=== PATIENT | female | born 2000 | race Two or more races ===

== ENCOUNTER 2023-10-13 15:47 | Outpatient (CLI) | payer OTHER | END 2023-10-13 15:49 | disposition home or self-care (01) | LOC: PRENATAL 15:47 | PROVIDERS: ATTEND Obstetrics & Gynecology Maternal & Fetal Medicine | DX: O36.80X0 Pregnancy with inconclusive fetal viability, not applicable or unspecified (principal); Z36.82 Encounter for antenatal screening for nuchal translucency; Z36.9 Encounter for antenatal screening, unspecified; Z3A.13 13 weeks gestation of pregnancy ==

== ENCOUNTER 2023-11-23 10:10 | Outpatient (CLI) | payer OTHER | END 2023-11-23 10:13 | disposition home or self-care (01) | LOC: PRENATAL 10:10 | PROVIDERS: ATTEND Obstetrics & Gynecology Maternal & Fetal Medicine | DX: O35.3XX0 Maternal care for (suspected) damage to fetus from viral disease in mother, not applicable or unspecified (principal); O44.00 Complete placenta previa NOS or without hemorrhage, unspecified trimester; Z3A.19 19 weeks gestation of pregnancy ==

== ENCOUNTER 2024-03-01 00:34 | Inpatient (IN) | payer OTHER ==
[~2024-03-01] VITALS: Ht 157.5 cm; Wt 1.8 kg
[2024-03-01] MEDS ORDERED: RINGERS SOLUTION,LACTATED 500 ML IV SCH (00:45)
[2024-03-01] MEDS ORDERED: PRENATAL TABLE1 EAC1 PO (00:53)
[2024-03-01] MEDS ORDERED: IRON325 MG PO (00:53)
[2024-03-01] MEDS ORDERED: NIFEDIPINE 30 MG TAB.SA.OSM PO ONE (01:30)
[2024-03-01] MEDS ORDERED: BETAMETHASONE ACETATE,SOD PHOS 30 MG/5 ML ML ONE (01:53)
[2024-03-01 01:56] LABS: URINE APPEARANCE Cloudy; URINE BILIRRUBIN Negative (NEGATIVE); URINE BLOOD Large; URINE COLOR Yellow; URINE GLUCOSE Negative (NEGATIVE); URINE LEUKOCYTE Negative; URINE NITRATE Negative; URINE UROBILINOGEN 0.2 E.U./dl
[2024-03-01 01:57] LABS: HEMATOCRIT 27.2 % (36.0-45.00); HEMOGLOBIN 9.3 g/dL (12.0-15.00); MEAN CELL VOLUME 95.7 fL (80.00-100.00); MEAN CORPUSCULAR HEMOGLOBIN 32.6 pg (27.00-32.0); MEAN CORPUSCULAR HGB CONC 34.1 g/dl (32.0-36.0); PLATELET COUNT 215 K/uL (150-450); RED BLOOD COUNT 2.85 M/uL (4.00-6.00); RED CELL DISTRIBUTION WIDTH 13.4 % (11.5-14.5)
[2024-03-01 01:59] LABS: URINE EPITHELIAL CELLS 29.8 uL (0.0-38.8); URINE RBC 1631.8 uL (0.0-20.8); URINE WBC 32.2 uL (0.0-23.2)
[2024-03-01] MEDS ORDERED: BETAMETHASONE ACETATE,SOD PHOS 30 MG/5 ML ML IM ONE ×2 (02:00→14:30)
[2024-03-01 02:04] LABS: URINE PROTEIN 300 (NEGATIVE)
[2024-03-01] MEDS ORDERED: NIFEDIPINE 10 MG CAPSULE PO ONE ×2 (08:27→20:36)
[2024-03-01] MEDS ORDERED: NIFEDIPINE 10 MG CAPSULE PO SCH (09:00)
[2024-03-01] MEDS ORDERED: AMPICILLIN SODIUM 2,000 MG VIAL IV ONE (09:00)
[2024-03-01] MEDS ORDERED: IRON/V.C/V.B12/FOLIC A/VIT. E 1 CAPL CAPLET PO SCH (09:00)
[2024-03-01 10:26] LABS: INR < 0.93; PARTIAL THROMBOPLASTIN TIME 28.1 SECONDS (22.0-34.0)
[2024-03-01 10:42] LABS: BILIRUBIN TOTAL 0.41 mg/dL (0.3-1.2); CALCIUM 9.4 mg/dL (8.5-10.1); CREATININE SERUM 0.44 mg/dL (0.55-1.02); GFR 178.81; GLOBULINA 3.7 G/DL (2.4-3.5); POTASSIUM 3.74 mEq/L (3.5-5.1); TOTAL PROTEIN 6.7 gm/dL (6.4-8.2)
[2024-03-01 10:44] LABS: PROTHROMBIN TIME 9.7 SECONDS (9.0-11.5)
[2024-03-01] MEDS ORDERED: TERBUTALINE SULFATE 1 MG/ML AMPUL SUBCUTANEO ONE (12:30)
[2024-03-01] MEDS ORDERED: AMPICILLIN SODIUM 1,000 MG VIAL IV SCH (13:00)
[2024-03-01] MEDS ORDERED: SOD FERRIC GLUC COMPLX/SUCROSE 125 MG in 0.9 % SODIUM CHLORIDE 100 ML IV SCH (14:37)
[2024-03-01] MEDS ORDERED: NIFEDIPINE 10 MG CAPSULE PO STA (21:05)
[2024-03-02] MEDS ORDERED: CEFAZOLIN SODIUM 1,000 MG VIAL ONE (01:42)
[2024-03-02] MEDS ORDERED: BETAMETHASONE ACETATE,SOD PHOS 30 MG/5 ML ML IM ONE (01:50)
[2024-03-02] MEDS ORDERED: CEFAZOLIN SODIUM 1,000 MG VIAL IV SCH (02:00)
[2024-03-02] MEDS ORDERED: OXYTOCIN 10 UNITS/ML VIAL ONE ×3 (02:29→09:51)
[2024-03-02] MEDS ORDERED: ERYTHROMYCIN BASE 3.5 GM OINT...G. OP ONE (02:30)
[2024-03-02] MEDS ORDERED: KETOROLAC TROMETHAMINE 30 MG VIAL IV PRN (03:45)
[2024-03-02] MEDS ORDERED: PROMETHAZINE HCL 25 MG/ML AMPUL IV PRN (03:45)
[2024-03-02] MEDS ORDERED: MEPERIDINE HCL/PF 25 MG/ML VIAL IV PRN (03:45)
[2024-03-02] MEDS ORDERED: OXYTOCIN 1,000 ML IV SCH (03:45)
[2024-03-02] MEDS ORDERED: OXYTOCIN 10 UNITS/ML VIAL IV ONE (06:15)
[2024-03-02] MEDS ORDERED: ERYTHROMYCIN BASE 1 GM TUBE OP ONE (06:15)
[2024-03-02 08:34] LABS: MEAN CELL VOLUME 96.7 fL (80.00-100.00); MEAN CORPUSCULAR HGB CONC 33.8 g/dl (32.0-36.0); PLATELET COUNT 221 K/uL (150-450); RED BLOOD COUNT 2.22 M/uL (4.00-6.00); RED CELL DISTRIBUTION WIDTH 13.8 % (11.5-14.5)
[2024-03-02 08:42] LABS: MEAN CORPUSCULAR HEMOGLOBIN 32.8 pg (27.00-32.0)
[2024-03-02 08:43] LABS: HEMATOCRIT 21.5 % (36.0-45.00)
[2024-03-02 08:44] LABS: HEMOGLOBIN 7.3 g/dL (12.0-15.00)
[2024-03-02] MEDS ORDERED: OxyCODONE HCL/APAP UD (PERCOCET) PO PRN (12:00)
[2024-03-02] MEDS ORDERED: IBUprofen 800 MG TABLET PO PRN (12:00)
[2024-03-02] MEDS ORDERED: DOCUSATE SODIUM 100MG CAP PO SCH (17:00)
[2024-03-02] MEDS ORDERED: SIMETHICONE 125 MG CAPSULE PO SCH (17:00)
[2024-03-03 05:10] LABS: HEMATOCRIT 30.6 % (36.0-45.00); HEMOGLOBIN 10.6 g/dL (12.0-15.00); MEAN CELL VOLUME 90.8 fL (80.00-100.00); MEAN CORPUSCULAR HEMOGLOBIN 31.4 pg (27.00-32.0); MEAN CORPUSCULAR HGB CONC 34.6 g/dl (32.0-36.0); PLATELET COUNT 175 K/uL (150-450); RED BLOOD COUNT 3.37 M/uL (4.00-6.00); RED CELL DISTRIBUTION WIDTH 16.4 % (11.5-14.5)
[2024-03-05] MEDS ORDERED: SURFAK240 M1 PO (09:41)
[2024-03-05] MEDS ORDERED: IBU800 MG PO (09:41)
== END 2024-03-05 14:21 | disposition home or self-care (01) | DRG 833 ==
LOC: OBS/DEL 00:34 → LDR 09:08 → O/R 03-02 04:35 → OB/GYN 03-02 11:36
PROVIDERS: Student in an Organized Health Care Education/Training Program; ADMIT Obstetrics & Gynecology; ATTEND Obstetrics & Gynecology
PROC: BY4FZZZ Ultrasonography of Third Trimester, Single Fetus (ICD-10-PCS; principal; 2024-03-01)
PROC: 4A1HXCZ Monitoring of Products of Conception, Cardiac Rate, External Approach (ICD-10-PCS; 2024-03-01)
DX: O60.03 Preterm labor without delivery, third trimester (principal); Z3A.33 33 weeks gestation of pregnancy; Z20.822 Contact with and (suspected) exposure to COVID-19